=== PATIENT | male | born 1965 | race Caucasian/White ===

== ENCOUNTER → 2016-10-06 | Outpatient (CLI) | payer MEDICARE, OTHER ==
[~2016-10-06] MED LIST: CEFEPIME HCL1 GM IV; CIPRO500 MG PO; COLACE 100MG C100 MG PO; CYMBALTA 30 MG30 MG PO; DAKIN'S SOLUTI500 ML EXT; FOLIC ACID 1 MG1 MG PO; LACTINEX TABLET1 EA PO; LEVOTHYROXINE25 MCG PO; LORTAB 7.5-3251 EACH PO; NEURONTIN 300300 MG PO; OXYCONTIN10 MG PO; REMERON 15 MG T15 MG GT; SENNA8.6 MG PO; SYNTHROID25 MCG PO; VITAMIN B COMP1 EAC2 PO; VITAMIN C 500500 MG PO; VITAMIN D 11000 UNIT PO; ZYVOX 600 MG T600 MG PO
[2016-10-06 13:52] LABS: BUN/CREATININE RATIO 17 (0-10)
== END ==
LOC: NM 08:49
PROVIDERS: Internal Medicine
DX: M86.9 Osteomyelitis, unspecified (principal); K65.1 Peritoneal abscess; R94.8 Abnormal results of function studies of other organs and systems
CPT/HCPCS: 36415; 78315; 80053; A9503

== ENCOUNTER 2016-10-17 17:29 | Inpatient (IN) | payer MEDICARE, OTHER ==
[~2016-10-17] VITALS: Ht 177.8 cm; Wt 74.5 kg
[2016-10-17 20:26] LABS: HEMOGLOBIN 9.5 gm/dl (14.0-17.5); RED BLOOD COUNT 4.16 M/UL (4.20-5.50); WHITE BLOOD COUNT 22.6 K/UL (4.5-11.0)
[2016-10-17 20:45] LABS: BUN/CREATININE RATIO 33 (0-10)
[2016-10-18 00:06] LABS: HEMOGLOBIN 9.7 gm/dl (14.0-17.5); RED BLOOD COUNT 4.23 M/UL (4.20-5.50); WHITE BLOOD COUNT 21.1 K/UL (4.5-11.0)
[2016-10-18] MEDS ORDERED: ZYVOX 600 MG T600 MG PO (00:11)
[2016-10-18] MEDS ORDERED: SYNTHROID25 MCG PO (00:12)
[2016-10-18] MEDS ORDERED: FOLIC ACID 1 MG1 MG PO (00:13)
[2016-10-18] MEDS ORDERED: VITAMIN B COMP1 EAC2 PO (00:13)
[2016-10-18] MEDS ORDERED: VITAMIN D 11000 UNIT PO (00:14)
[2016-10-18] MEDS ORDERED: CIPRO500 MG PO (00:14)
[2016-10-18] MEDS ORDERED: CYMBALTA 30 MG30 MG PO (00:15)
[2016-10-18] MEDS ORDERED: REMERON 15 MG T15 MG GT (00:15)
[2016-10-18 00:17] LABS: BUN/CREATININE RATIO 30 (0-10)
[2016-10-19 04:22] LABS: HEMOGLOBIN 8.7 gm/dl (14.0-17.5); RED BLOOD COUNT 3.88 M/UL (4.20-5.50)
[2016-10-19 04:32] LABS: WHITE BLOOD COUNT 12.9 K/UL (4.5-11.0)
[2016-10-19 04:59] LABS: BUN/CREATININE RATIO 14 (0-10)
[2016-10-21 05:47] LABS: HEMOGLOBIN 9.9 gm/dl (14.0-17.5)
[2016-10-21 05:53] LABS: RED BLOOD COUNT 4.44 M/UL (4.20-5.50); WHITE BLOOD COUNT 9.1 K/UL (4.5-11.0)
[2016-10-21 06:01] LABS: BUN/CREATININE RATIO 33 (0-10)
[2016-10-24 05:41] LABS: HEMOGLOBIN 9.7 gm/dl (14.0-17.5); RED BLOOD COUNT 4.25 M/UL (4.20-5.50)
[2016-10-24 05:42] LABS: WHITE BLOOD COUNT 14.1 K/UL (4.5-11.0)
[2016-10-24 06:04] LABS: BUN/CREATININE RATIO 40 (0-10)
[2016-10-25 06:14] LABS: HEMOGLOBIN 9.2 gm/dl (14.0-17.5); RED BLOOD COUNT 4.07 M/UL (4.20-5.50); WHITE BLOOD COUNT 12.5 K/UL (4.5-11.0)
[2016-10-25 06:45] LABS: BUN/CREATININE RATIO 28 (0-10)
[2016-10-27 04:07] LABS: HEMOGLOBIN 9.3 gm/dl (14.0-17.5); RED BLOOD COUNT 4.06 M/UL (4.20-5.50); WHITE BLOOD COUNT 11.9 K/UL (4.5-11.0)
[2016-10-27 04:29] LABS: BUN/CREATININE RATIO 26 (0-10)
[2017-01-14] MEDS ORDERED: NEURONTIN 300300 MG PO (21:57)
[2017-01-23] MEDS ORDERED: LEVOTHYROXINE25 MCG PO (13:53)
[2017-01-23] MEDS ORDERED: COLACE 100MG C100 MG PO (13:54)
[2017-01-23] MEDS ORDERED: OXYCONTIN10 MG PO (13:54)
[2017-01-23] MEDS ORDERED: VITAMIN C 500500 MG PO (13:54)
[2017-01-23] MEDS ORDERED: SENNA8.6 MG PO (13:55)
[2017-01-23] MEDS ORDERED: LORTAB 7.5-3251 EACH PO (13:55)
[2017-01-23] MEDS ORDERED: LACTINEX TABLET1 EA PO (13:55)
[2017-01-23] MEDS ORDERED: DAKIN'S SOLUTI500 ML EXT (13:57)
[2017-01-23] MEDS ORDERED: CEFEPIME HCL1 GM IV (13:58)
== END 2016-10-28 15:24 | DRG 698 ==
LOC: ER1 17:29 → MED SURG 4 22:00 → ZEROF 22:00 → MED SURG 4 23:12
PROVIDERS: Emergency Medicine; Family Medicine; Internal Medicine; Internal Medicine Infectious Disease; Physician Assistant Medical; ADMIT Hospitalist
DX: T83.518A Infection and inflammatory reaction due to other urinary catheter, initial encounter (principal); L89.214 Pressure ulcer of right hip, stage 4; R53.2 Functional quadriplegia; L89.154 Pressure ulcer of sacral region, stage 4; L89.894 Pressure ulcer of other site, stage 4; M86.68 Other chronic osteomyelitis, other site; N30.00 Acute cystitis without hematuria; E46 Unspecified protein-calorie malnutrition; Y84.6 Urinary catheterization as the cause of abnormal reaction of the patient, or of later complication, without mention of misadventure at the time of the procedure; E03.9 Hypothyroidism, unspecified; B96.1 Klebsiella pneumoniae [K. pneumoniae] as the cause of diseases classified elsewhere; B95.7 Other staphylococcus as the cause of diseases classified elsewhere; B95.62 Methicillin resistant Staphylococcus aureus infection as the cause of diseases classified elsewhere; B96.5 Pseudomonas (aeruginosa) (mallei) (pseudomallei) as the cause of diseases classified elsewhere; L89.610 Pressure ulcer of right heel, unstageable; D50.9 Iron deficiency anemia, unspecified; Y73.8 Miscellaneous gastroenterology and urology devices associated with adverse incidents, not elsewhere classified; G89.29 Other chronic pain; L21.9 Seborrheic dermatitis, unspecified; Z74.01 Bed confinement status; Z93.3 Colostomy status; Z88.1 Allergy status to other antibiotic agents; Z88.2 Allergy status to sulfonamides; Z79.2 Long term (current) use of antibiotics; Z80.8 Family history of malignant neoplasm of other organs or systems; Z80.9 Family history of malignant neoplasm, unspecified; Z68.23 Body mass index [BMI] 23.0-23.9, adult
CPT/HCPCS: 36415; 70450; 71010; 80048; 80053; 81001; 82607; 82728; 82746; 83540; 83550; 83735; 85025; 85027; 85045; 85610; 85730; 86140; 87040; 87070; 87077; 87086; 87186; 87205; 93005; 96374; 99285; C9113; J1335; J1650; J1756; J1956; J2185; J2270; J2405; J7030; J7050